=== PATIENT | male | born 2005 | race Caucasian/White ===

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

== ENCOUNTER 2024-10-11 08:50 | Emergency (ER) | payer BC ==
[2024-10-11 09:02] VITALS: BP 115/68; PULSE 87
== END 2024-10-11 09:39 | disposition home or self-care (01) ==
LOC: FB.ED 08:50
DX: J20.9 Acute bronchitis, unspecified (principal); B96.89 Other specified bacterial agents as the cause of diseases classified elsewhere; Z79.899 Other long term (current) drug therapy
CPT/HCPCS: 99283